=== PATIENT | male | born 1950 | race Caucasian/White ===

== ENCOUNTER 2019-01-06 17:45 | Emergency (ER) | payer BC, MEDICARE, OTHER ==
[2019-01-06] MEDS ORDERED: Bacitracin OINTMENT* 0.5% 0.5 oz TUBE TOPICAL ONE (18:47)
[2019-01-06 19:01] LABS: ABS Lymphocytes 1.5 10^3/ul (1.0-4.8); ABS Monocytes 0.9 10^3/ul (0-0.8); ABS Neutrophils 9.1 10^3/ul (1.5-7.7); Eosinophil % 0.4 %; Hematocrit 43 % (42-52); Hemoglobin 14.7 g/dL (14.0-18.0); Lymphocyte % 13.1 %; Mean Corpuscular HGB Conc 34 g/dL (31-36); Mean Corpuscular Hemoglobin 32 pg (27-31); Mean Corpuscular Volume 95 fL (80-94); Mean Platelet Volume 7.3 fL (7.4-10.4); Nucleated Red Blood Cells % 0.1; Platelet Count 176 10^3/uL (150-450); Red Blood Count 4.57 10^6 /uL (4.18-5.48); Red Cell Distribution Width 14 % (10-15); White Blood Count 11.7 10^3/uL (3.5-10.8)
[2019-01-06 19:18] LABS: Albumin 4.5 g/dL (3.2-5.2); Albumin/Globulin Ratio 2.1 (1-3); BUN/Creatinine Ratio 9.3 (8-20); Calcium 9.4 mg/dL (8.6-10.3); EGFR African American 82.8 (>60); EGFR Non-African American 68.4 (>60); Globulin 2.1 g/dL (2-4); Potassium 4.2 mmol/L (3.5-5.0); Total Bilirubin 0.8 mg/dL (0.2-1.0); Total Protein 6.6 g/dL (6.4-8.9)
[2019-01-06 19:29] LABS: Urine Appearance Clear; Urine Bilirubin Negative (Negative); Urine Blood Negative (Negative); Urine Color Yellow; Urine Glucose Negative (Negative); Urine Ketones Negative (Negative); Urine Nitrite Negative (Negative); Urine Protein Negative (Negative); Urine Urobilinogen Negative (Negative)
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
[2019-01-06] MEDS ORDERED: Iohexol 300* (CONTRAST) 10 ML SDV IV ONE (19:59)
[2019-01-06] MEDS ORDERED: NS 0.9% 1000 ML** 1,000 ML IV ONE (20:12)
[2019-01-06] MEDS ORDERED: Ketorolac *IM* INJ* 60 MG/2 ML VIAL IM ONE (20:53)
[2019-01-06 20:59] VITALS: BP 132/85
[2019-01-06] MEDS ORDERED: Ketorolac INJ* 30 MG/ML 1 ML VIAL ONE (21:37)
[2019-01-06] MEDS ORDERED: Ketorolac INJ* 30 MG/ML 1 ML VIAL IV PUSH ONE (21:40)
== END 2019-01-06 21:43 | disposition home or self-care (01) ==
LOC: ED 17:45
DX: R07.9 Chest pain, unspecified (principal); R10.9 Unspecified abdominal pain; V29.9XXA Motorcycle rider (driver) (passenger) injured in unspecified traffic accident, initial encounter; Y92.9 Unspecified place or not applicable; I10 Essential (primary) hypertension; F32.9 Major depressive disorder, single episode, unspecified; Z79.82 Long term (current) use of aspirin; Z79.899 Other long term (current) drug therapy; Z87.891 Personal history of nicotine dependence; Z79.01 Long term (current) use of anticoagulants
CPT/HCPCS: 36415; 71260; 74177; 80053; 81003; 82550; 85025; 96361; 96372; 96374; 99284; A9270-GY; J1885; Q9967